=== PATIENT | female | born 1955 | race Caucasian/White ===

== ENCOUNTER → 2022-07-28 | Day surgery (SDC) | payer BC, MEDICARE ==
[~2022-07-28] MED LIST: HYDROCHLOROTH12.5 MG PO; OR PHACO EYE KIT ONE; PREOP PHACO EYE KIT ONE; VITAMIN D3250 MCG PO; ZEBETA10 MG PO
[2022-07-28 15:05] VITALS: BP 140/74
== END | disposition home or self-care (01) ==
LOC: OR 11:28
PROVIDERS: ATTEND Ophthalmology
DX: H25.11 Age-related nuclear cataract, right eye (principal); I10 Essential (primary) hypertension; K21.9 Gastro-esophageal reflux disease without esophagitis; Z88.0 Allergy status to penicillin; Z79.899 Other long term (current) drug therapy
CPT/HCPCS: V2632

== ENCOUNTER → 2022-08-11 | Day surgery (SDC) | payer BC, MEDICARE ==
[~2022-08-11] MED LIST changes: +FENTANYL CITRATE/PF 100MCG/2 ML INJ ONE; +MIDAZOLAM HCL 2 MG/2 ML VIAL ONE
[2022-08-11 13:35] VITALS: BP 132/68
== END | disposition home or self-care (01) ==
LOC: OR 09:30
PROVIDERS: ATTEND Ophthalmology
DX: H25.12 Age-related nuclear cataract, left eye (principal); I10 Essential (primary) hypertension; K21.9 Gastro-esophageal reflux disease without esophagitis; K57.90 Diverticulosis of intestine, part unspecified, without perforation or abscess without bleeding; Z88.0 Allergy status to penicillin; Z79.899 Other long term (current) drug therapy
CPT/HCPCS: 66984; J2250; J3010; V2632